=== PATIENT | male | born 1990 | race Two or more races ===

== ENCOUNTER 2017-04-19 21:04 | Emergency (ER) | payer SELFPAY ==
[~2017-04-19] VITALS: Ht 165.1 cm; Wt 82.4 kg
[2017-04-19 21:44] LABS: BASOPHIL (%) 0.2 % (0-1); EOSINOPHIL (%) 0.5 % (0-5); EOSINOPHIL COUNT 0.1 K/uL (0-0.3); HEMOGLOBIN 15.7 G/DL (12.5-16.6); IMMATURE GRANULOCYTE (%) 0.1 % (0.0-0.7); LYMPHOCYTE (%) 15.7 % (15-42); LYMPHOCYTE COUNT 1.5 K/uL (1.0-2.8); MCH 29.5 PG (29.0-34.0); MCHC 34.9 G/DL (30.0-36.0); MCV 84.4 FL (86-99); MONOCYTE (%) 9.8 % (3-12); MONOCYTE COUNT 0.9 K/uL (0-0.8); NEUTROPHIL (%) 73.7 % (45-76); NEUTROPHIL COUNT 7.1 K/uL (1.8-6.4); PLATELET COUNT 268 K/uL (156-360); RBC DIS.WIDTH-SD 36.8 % (39-53); RED BLOOD COUNT 5.33 M/uL (4.00-5.50); WHITE BLOOD COUNT 9.6 K/uL (4.1-10.2)
[2017-04-19 21:52] LABS: CHLORIDE 108 mEq/L (99-109); POTASSIUM 3.6 mEq/L (3.7-5.4); SODIUM 141 mEq/L (136-147)
[2017-04-19 21:55] LABS: GLUCOSE 107 mg/dL (70-99); TOTAL PROTEIN 7.3 g/dL (6.4-8.3)
[2017-04-19 21:57] LABS: TOTAL BILIRUBIN 0.8 mg/dL (0.0-1.0)
[2017-04-19 21:58] LABS: ALKALINE PHOSPHATASE 89 IU/L (3-129); CREATININE 0.9 mg/dL (0.6-1.3)
[2017-04-19 21:59] LABS: UREA NITROGEN (BUN) 15 mg/dL (9-23)
[2017-04-19 22:00] LABS: AST (GOT) 18 IU/L (2-34)
[2017-04-19 22:01] LABS: ALT (GPT) 27 IU/L (3-49)
[2017-04-19 22:02] LABS: LIPASE 28 U/L (1.0-51.0)
[2017-04-19 22:03] LABS: GFR ESTIMATE (CALCULATED) > 59 mL/min/ (58.99-99999)
[2017-04-19 22:55] LABS: SOURCE URINE
[2017-04-19 23:00] LABS: APPEARANCE CLOUDY ((CLEAR)); BILIRUBIN NEGATIVE; BLOOD SMALL; COLOR YELLOW ((YELLOW)); GLUCOSE (STRIP) NEGATIVE; KETONES NEGATIVE; LEUKOCYTES LARGE; NITRITE NEGATIVE; PROTEIN (STRIP) 30; SPECIFIC GRAVITY 1.011 (1.000-1.030); UROBILINOGEN 0.2 MG/DL (0.2-1.0)
[2017-04-19 23:16] LABS: BACTERIA RARE /HPF; EPITHELIAL CELLS RARE /HPF; MUCUS RARE /LPF; RED BLOOD CELLS 0-5 /HPF (0-5); WHITE BLOOD CELLS TNTC /HPF (0-5)
[2017-04-19] MEDS ORDERED: LEVAQUIN500 MG PO (23:33)
[2017-04-19] MEDS ORDERED: PERCOCET 5/31 TABLET PO (23:33)
[2017-04-19] MEDS ORDERED: ZOFRAN ODT4 MG PO (23:33)
[2017-04-19 23:55] VITALS: BP 129/72
[2017-04-23 13:40] LABS: CHLAMYDIA TRACHOMATIS NEGATIVE; NEISSERIA GONORRHOEAE NEGATIVE
== END 2017-04-19 23:56 | disposition home or self-care (01) ==
LOC: EME 21:04
PROVIDERS: Physician Assistant
DX: N45.3 Epididymo-orchitis (principal)
CPT/HCPCS: 74176; 76870; 80053; 81003; 83690; 85025; 87491; 87591; 99281; 99284; J0696; J3010